=== PATIENT | male | born 1950 | race Caucasian/White ===

== ENCOUNTER 2017-03-03 09:21 | Outpatient (CLI) | payer OTHER ==
--- NOTE | 2017-03-03 10:17 | DIAGNOSTIC IMAGING REPORT ---
PROCEDURE: XR TIBIA AND FIBULA - RIGHT INDICATION: CHRONIC SHOULDER PAIN; R LEG OPEN WOUND TECHNIQUE: Four views. COMPARISON: None. FINDINGS: Osseous structures are normal. IMPRESSION: 1. Normal right tibia and fibula.
--- NOTE | 2017-03-03 10:19 | DIAGNOSTIC IMAGING REPORT ---
PROCEDURE: XR SHOULDER 2 OR MORE VW-RIGHT INDICATION: CHRONIC SHOULDER PAIN; TECHNIQUE: Three views. COMPARISON: None. FINDINGS: Severe osteoarthritis with osteophyte formation and narrowing of the joint space and sclerosis of the glenoid. There is also osteoarthritis involving the AC joint as well. IMPRESSION: 1. Severe osteoarthritis of glenohumeral joint and the acromioclavicular joint.
== END 2017-03-03 23:00 | disposition home or self-care (01) ==
LOC: XR SRH 09:21
DX: M19.012 Primary osteoarthritis, left shoulder (principal); L97.919 Non-pressure chronic ulcer of unspecified part of right lower leg with unspecified severity